=== PATIENT | female | born 1960 | race Caucasian/White ===

== ENCOUNTER → 2024-03-22 08:15 | Outpatient (REF) | payer OTHER, SELFPAY | LOC: HWRAD 08:15 | PROVIDERS: ATTENDING PHYSICIAN Specialist; FAMILY PHYSICIAN Family Medicine | DX: N20.0 Calculus of kidney (principal) | CPT/HCPCS: 76770 ==

== ENCOUNTER 2025-08-12 16:06 | Inpatient (IN) | payer OTHER, SELFPAY ==
[2025-08-12] VITALS (9 sets, daily range): BP systolic 104–158; BP diastolic 60–88
[2025-08-12 12:58] LABS: Urine Character Clear (Clear)
[2025-08-12 12:59] LABS: Hematocrit 36.5 % (37.0-47.0); Hemoglobin 12.7 g/dL (12.0-16.0); Mean Corp Hgb Conc. 34.8 g/dL (33.0-37.0); Mean Corpuscular Volume 90.3 fL (81.0-99.0); Nucleated Red Blood Cells % 0 %; Platelet Count 235 10^3/uL (130-400); Red Cell Dist. Width 11.9 % (11.5-14.5)
--- NOTE | 2025-08-12 12:59 | ED.GENMED ---
History of Present Illness
<KATHY Gibbs - Last Filed: 08/12/25 15:55>
General
Chief Complaint: Abdominal Pain
Source: patient
Exam Limitations: none
Time Seen by Provider: 08/12/25 12:15
Nursing documentation reviewed up to this point in time: agreed with
History of Present Illness
History of Present Illness:
Patient is a 65-year-old female presents with left-sided lower abdominal pain nausea vomiting and chills since last night. She does feel similar to diverticulitis in the past. She denies any actual fevers. She does have history of kidney stone
but reports this does not feel the same.
Past History
<KATHY Gibbs - Last Filed: 08/12/25 15:55>
Past History
ED Past Medical History: Hypothyroidism and Other (Migraines Diverticulitis Kidney stones); Negative Asthma, HTN, Hypercholesterolemia or NIDDM
ED Past Surgical History: None
Social History
Tobacco: Former smoker
Alcohol: None
Drug: None
Personal:
Living: with family
Employment: Employed
Family History
Family History: Other
Phy Exam
<KATHY Gibbs - Last Filed: 08/12/25 15:55>
General Physical Exam
General Presentation: no apparent distress
General age: appears stated age
General Skin: warm and dry
General Habitus: normal
General Mental: alert
General Hydration: appears well hydrated
Neurological Exam
Neurological Exam: alert and oriented x3
Musculoskeletal Exam
Musculoskeletal Exam: full ROM
Skin Exam
Skin Exam: normal color and warm/dry
Psychiatric Exam
Psychiatric Exam: normal mood/affect
Course
<KATHY Gibbs - Last Filed: 08/12/25 15:55>
Orders/Labs/Results
Orders:
Orders
08/12/25 12:44
Complete Blood Count/With Diff Urgent
Comprehensive Metabolic Panel Urgent
Lipase Urgent
Urinalysis Reflex To Culture Urgent
Date Specimen was Collected: 08/12/25
Time Specimen was Collected: 12:39
Urine Microscopic Reflex Cult Urgent
08/12/25 12:59
0.9% Sodium Chloride 1000 ml [Nss] 1,000 ml IV BOLUS
08/12/25 13:13
CT Abd/Pel (IV only)-DH only Urgent
Comment:
Reason For Exam: llq pain
08/12/25 15:50
Zosyn 3.375 grams IVPB NOW Piperacillin/Tazo 3.375 Gram [Zosyn] 3.375 gram in 50 ml IV NOW
Abnormal Lab Results
08/12/25
12:44
RBC 4.04 L 10^6/uL
(4.20-5.40)
Hct 36.5 L %
(37.0-47.0)
MCH 31.4 H pg
(27.0-31.0)
Absolute Monos (auto) 0.7 H 10^3/uL
(0.1-0.6)
Chloride 110 H mmol/L
(98-107)
Glucose 124 H mg/dl
(70-99)
Urine Albumin (Reflex) 1+ A
(Neg - Trace)
08/12/25 12:44
08/12/25 12:44
Vital Signs
Initial and Last Documented VS:
Initial Vital Signs
Temp Pulse Resp BP Pulse Ox
98.6 F 88 20 158/76 98
08/12/25 11:48 08/12/25 11:48 08/12/25 11:48 08/12/25 11:48 08/12/25 11:48
Last Documented Vital Signs
Temp Pulse Resp BP Pulse Ox
98.6 F 89 22 117/60 93
08/12/25 11:48 08/12/25 15:30 08/12/25 15:30 08/12/25 15:00 08/12/25 15:30
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
Furniture Mover Helper consulted with physician?: Yes
Name of Physician Consulted: Dr Hunter
<Flower Hunter, DO - Last Filed: 08/12/25 15:57>
Orders/Labs/Results
Orders:
Orders
08/12/25 12:44
Complete Blood Count/With Diff Urgent
Comprehensive Metabolic Panel Urgent
Lipase Urgent
Urinalysis Reflex To Culture Urgent
Date Specimen was Collected: 08/12/25
Time Specimen was Collected: 12:39
Urine Microscopic Reflex Cult Urgent
08/12/25 12:59
0.9% Sodium Chloride 1000 ml [Nss] 1,000 ml IV BOLUS
08/12/25 13:13
CT Abd/Pel (IV only)-DH only Urgent
Comment:
Reason For Exam: llq pain
08/12/25 15:50
Zosyn 3.375 grams IVPB NOW Piperacillin/Tazo 3.375 Gram [Zosyn] 3.375 gram in 50 ml IV NOW
Abnormal Lab Results
08/12/25
12:44
RBC 4.04 L 10^6/uL
(4.20-5.40)
Hct 36.5 L %
(37.0-47.0)
MCH 31.4 H pg
(27.0-31.0)
Absolute Monos (auto) 0.7 H 10^3/uL
(0.1-0.6)
Chloride 110 H mmol/L
(98-107)
Glucose 124 H mg/dl
(70-99)
Urine Albumin (Reflex) 1+ A
(Neg - Trace)
08/12/25 12:44
08/12/25 12:44
Vital Signs
Initial and Last Documented VS:
Initial Vital Signs
Temp Pulse Resp BP Pulse Ox
98.6 F 88 20 158/76 98
08/12/25 11:48 08/12/25 11:48 08/12/25 11:48 08/12/25 11:48 08/12/25 11:48
Last Documented Vital Signs
Temp Pulse Resp BP Pulse Ox
98.6 F 89 22 117/60 93
08/12/25 11:48 08/12/25 15:30 08/12/25 15:30 08/12/25 15:00 08/12/25 15:30
<KATHY Gibbs - Last Filed: 08/12/25 15:55>
MDM/Problems Addressed
Differential Diagnosis Includes:
Not limited to viral syndrome, gastroenteritis, colitis, diverticulitis, cholecystectomy
MDM/Problems Addressed:
Patient is a 65-year-old female presented with nausea and vomiting chills left-sided abdominal pain consistent with her previous diverticulitis. CAT scan does show diverticulitis in the sigmoid colon there is adjacent inflammation cannot rule out
developing abscess. Patient is afebrile with a normal white count case reviewed ED physician will order IV antibiotics and admit for continued observation
<KATHY Gibbs - Last Filed: 08/12/25 15:55>
*Radiology
Radiology exam reviewed: radiology read reviewed
*Pulse Oximetry
SaO2: 95
Oxygen Mode of Delivery: Room air
Patient hypoxic: no
*Critical Care Note
Total Time (30-74mins, 75-104mins- exclusive of procedures): Not Applicable
ED Attending Note
<KATHY Gibbs - Last Filed: 08/12/25 15:55>
-
Portions of this chart may have been created with voice recognition software.� Occasional wrong word or��sound alike� substitutions may have occurred due to the inherent limitations of voice recognition software.
<Flower Hunter, DO - Last Filed: 08/12/25 15:57>
ED Attending Note
Patient seen and examined by attending physician: Yes
I performed the substantive portion of visit, reviewed & personally made and approve the management plan that is documented in note by myself or DAMIAN.: Yes
I performed a history and physical exam of patient and discussed management with resident, I reviewed resident's note and agree with documented findings and plan of care.: Yes
ED Attending Note:
65-year-old female with prior history of diverticulitis presenting for abdominal pain with nausea and vomiting. Patient notes symptoms started last evening. She notes history of diverticulitis in the past which was her concern. Pain is lower in
quality. Also notes history of kidney stones. Denies any known fever. Vital signs significant for mild hypertension which improved without intervention.
On exam patient resting comfortably, nontoxic with focal tenderness to left lower quadrant of the abdomen. Patient seen by nurse practitioner prior to my assessment with laboratory imaging. Labs relatively unremarkable, however CT is consistent
with acute diverticulitis with possible developing abscess. For this reason feel patient warrants admission for IV antibiotics and continued close monitoring.
Discharge Plan
Departure
Discharge Problem:
Sigmoid diverticulitis
Prescriptions:
No Action
levothyroxine [Synthroid] 100 MCG tablet
100 mcg PO SUMOTUWETHFR
escitalopram oxalate 20 MG tablet
20 mg PO DAILY
cholecalciferol (vitamin D3) 2,000 UNITS tablet
2,000 units PO DAILY
loratadine 10 MG tablet
10 mg PO DAILY
tramadol 50 MG tablet
50 mg PO Q8HPRN PRN (Reason: moderate pain)
levothyroxine 100 MCG tablet
150 mcg PO SA
bupropion HCl 150 MG tablet extended release 24 hr
150 mg PO DAILY
phenazopyridine 100 MG tablet
100 mg PO [id number]
Patient Comments:
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
acetaminophen 500 MG capsule
500 mg PO Q6HPRN PRN (Reason: pain) Qty: 60 0RF
cefdinir [Omnicef] 300 MG capsule
300 mg PO Q12H Qty: 6 0RF
Referrals:
Claude Stanford DO [Family Provider, Family Practice]
Interventions
Interventions:
*Risk Screen - Suicide Last Done: 08/12/25 11:48
*General Assessment Last Done: 08/12/25 12:39
*Neglect/Abuse Screening Last Done: 08/12/25 11:50
*ED- Fall Risk Assessment Last Done: 08/12/25 12:39
*ED COVID-19 Vaccine History Last Done: 08/12/25 12:39
*ED Influenza Vaccine History Last Done: 08/12/25 12:39
PZ-Ktkqzr-Hiwwkeojoc Assessment Last Done: 08/12/25 12:39
Discharge Date and Time
Print Language: [place]IZ[place]
[2025-08-12] MEDS: NSS 1000 IV ×2 (13:15→20:23)
[2025-08-12 13:18] LABS: Urine Squamous Cell 0-2 /LPF (Few); Urine Urothelial Cell 0-2 /LPF (FEW)
[2025-08-12 13:20] LABS: Urine Red Blood Cell 0-2 /HPF (0-2); Urine White Cell 0-2 /HPF (0-5)
[2025-08-12 13:27] LABS: ALT (SGPT) 24 U/L (0-35); AST (SGOT) 25 U/L (14-36); Albumin 4.1 g/dl (3.5-5.0); Alkaline Phosphatase 70 U/L (38-126); Blood Urea Nitrogen 13 mg/dl (7-17); Calcium 9.3 mg/dl (8.4-10.2); Carbon Dioxide 24 mmol/L (22-30); Chloride 110 mmol/L (98-107); Glucose 124 mg/dl (70-99); Lipase 85 U/L (23-300); Potassium 4.2 mmol/L (3.5-5.1); Sodium 140 mmol/L (135-145); Total Protein 6.8 g/dl (6.3-8.2); eGFR > 60.00
[2025-08-12] MEDS: ZOSYN 50 IV ×2 (15:57→20:23)
--- NOTE | 2025-08-12 16:01 | HPS.HSE ---
Family Physician
-
Family Physician: Claude Stanford
Chief Complaint
-
abdominal pain
History of Present Illness
65-year-old female past medical history of hypothyroidism, migraines, diverticulitis, kidney stones status post bilateral stent placement, complicated UTI, depression, presenting with left-sided lower abdominal pain, nausea and vomiting and chills
since last night. Feels similar to prior diverticulitis. No actual fever. Denies any urinary symptoms.
She had diverticulitis a few years ago treated medically with antibiotics.
She denies smoking or alcohol use.
Medical History
Past Medical History
Past Medical History: Reports Other ( hypothyroidism, migraines, diverticulitis, kidney stones status post bilateral stent placement, complicated UTI, depression)
Past Surgical History: Reports Other (bilateral ureteral stents )
Social History
Tobacco: Non-smoker
Alcohol: None
Drug: None
Family History
Family History: Not pertinent
Allergies / Home Medications
Allergies reflects when Allergies were last updated in [facility].
Home Medications with original date entered in [facility]
Allergy/Medication List:
Allergies
Allergy/AdvReac Type Severity Reaction Status Date / Time
No Known Allergies Allergy Verified 08/12/25 11:48
Home Medications
escitalopram oxalate 20 mg tablet 20 mg PO DAILY mental health 03/02/22
levothyroxine 100 mcg tablet (Synthroid) 100 mcg PO SUMOTUWETHFR Thyroid 03/02/22
cholecalciferol (vitamin D3) 50 mcg (2,000 unit) tablet 2,000 units PO DAILY Supplement 03/07/22
loratadine 10 mg tablet 10 mg PO DAILY Allergies 04/05/22
bupropion HCl 150 mg 24 hr tablet, extended release 150 mg PO DAILY mental health 04/12/22
levothyroxine 100 mcg tablet 150 mcg PO SA Thyroid 04/12/22
phenazopyridine 100 mg tablet 100 mg PO [id number] Urinary issue 04/12/22
tramadol 50 mg tablet 50 mg PO Q8HPRN PRN moderate pain 04/12/22
acetaminophen 500 mg capsule 500 mg PO Q6HPRN PRN pain #60 caps 04/15/22
cefdinir 300 mg capsule (Omnicef) 300 mg PO Q12H #6 caps 04/15/22
Review of Systems
-
History Source: Patient
A 12 point ROS was completed and negative except as noted: Yes
Constitutional: Reports No Symptoms
EENT: Reports No Symptoms
Respiratory: Reports No Symptoms
Cardiac: Reports No Symptoms
Abdomen/GI: Reports No Symptoms
: Reports No Symptoms
Musculoskeletal: Reports No Symptoms
Skin: Reports No Symptoms
Neurological: Reports No Symptoms
Endocrine: Reports No Symptoms
Hematologic/Lymphatic: Reports No Symptoms
Psych: Reports No Symptoms
Physical Exam
Vital Signs
Vital Signs
Temp Pulse Resp BP Pulse Ox
98.6 F 89 22 117/60 93
08/12/25 11:48 08/12/25 15:30 08/12/25 15:30 08/12/25 15:00 08/12/25 15:30
Physical Exam
General: Well Developed, Well Nourished and No Apparent Distress
HEENT: NormoCephalic, Moist mucous membranes and Atraumatic
Respiratory: Clear
Cardiac: S1/S2 and Regular Rhythm; No Murmur or Rub
GI: Soft, Non Distended, Normal Bowel Sounds and Tender (LLQ ); No Organomegaly
Rectal: Deferred by Provider
Musculoskeletal: No Clubbing, No Cyanosis and No Edema
Skin: No Rash
Neuro: Nonfocal/grossly intact
Laboratory Results
-
08/12/25 12:44
08/12/25 12:44
Laboratory Results
Total Bilirubin 0.7 mg/dl (0.2-1.3) 08/12/25 12:44
AST 25 U/L (14-36) 08/12/25 12:44
ALT 24 U/L (0-35) 08/12/25 12:44
Alkaline Phosphatase 70 U/L (38-126) 08/12/25 12:44
Lipase 85 U/L (23-300) 08/12/25 12:44
Data Reviewed
-
Lab Data: Labs Reviewed by me
Old Records: Reviewed
Impression/Plan
-
IMPRESSION:
PLAN:
# Acute diverticulitis
# History of prior diverticulitis few years ago
- CT abdomen pelvis shows sigmoid diverticulitis, inflammation, developing small abscess cannot be excluded
- N.p.o.
- IV fluids
- Zosyn
- Colorectal surgery consulted
Hypothyroidism
- Continue levothyroxine
History of migraine
History of kidney stones with prior bilateral stent placement
History of complicated UTI
Anxiety/depression
- Continue bupropion, Lexapro
DNR/DNI
DVT prophylaxis�heparin
N.p.o.
--- NOTE | 2025-08-12 18:11 | EDCM ---
CM reviewed chart and met with pt bedside in ED. Lives with her son in first floor apartment, [address].
Independent in ADLs, personal care and ambulation at baseline. No assistive devices.
Confirms prescription coverage.
No hx VN or SNF.
PCP: Claude Stanford
Pharmacy: [facility] [address] [facility]
Anticipate discharge home, CM will continue to follow for any discharge planning needs.
[2025-08-12] MEDS: TORADOL 15 MG IV (18:51)
[2025-08-12] MEDS: HEPARIN 5000 UNITS SC (20:22)
--- NOTE | 2025-08-12 22:53 | PTCARENOTE ---
20:00 pt rec'vd from ER aaox3,able to ambulate to bed, vs WNL. Pt denies pain at this time however expresses some left upper abd pain when voids. denies needing pian medication at this time IVF infusing as ordered, pt NPO.. oriented to unit
[2025-08-13] MEDS: ZOSYN 50 IV ×4 (04:44→21:07)
[2025-08-13] MEDS: DILAUDID 0.5 MG IV (05:36)
[2025-08-13] MEDS: SYNTHROID 100 MCG PO (05:36)
[2025-08-13 07:03] LABS: Hematocrit 34.9 % (37.0-47.0); Hemoglobin 11.7 g/dL (12.0-16.0); Mean Corp Hgb Conc. 33.5 g/dL (33.0-37.0); Mean Corpuscular Volume 90.6 fL (81.0-99.0); Nucleated Red Blood Cells % 0 %; Platelet Count 202 10^3/uL (130-400); Red Cell Dist. Width 11.9 % (11.5-14.5)
[2025-08-13 07:33] LABS: ALT (SGPT) 26 U/L (0-35); AST (SGOT) 36 U/L (14-36); Albumin 3.5 g/dl (3.5-5.0); Alkaline Phosphatase 86 U/L (38-126); Blood Urea Nitrogen 11 mg/dl (7-17); Calcium 8.8 mg/dl (8.4-10.2); Carbon Dioxide 24 mmol/L (22-30); Chloride 113 mmol/L (98-107); Estimated Creatinine Clearance 75 ml/min; Glucose 135 mg/dl (70-99); Potassium 4.0 mmol/L (3.5-5.1); Sodium 142 mmol/L (135-145); Total Protein 5.9 g/dl (6.3-8.2); eGFR > 60.00
[2025-08-13 08:13] VITALS: BP 119/65
[2025-08-13] MEDS: NSS 1000 IV ×2 (09:22→20:11)
[2025-08-13] MEDS: HEPARIN SC (09:53)
[2025-08-13 10:58] LABS: C-Reactive Protein 24.80 mg/L (0.0-10.00)
--- NOTE | 2025-08-13 12:36 | CON.CRS ---
Consultation
-
Date/Time Consultation Performed: 08/13/2025
Performing Provider: Sidney Gonzalez MD
Reason for Consultation: Diverticulitis
Medical History
-
History of Present Illness:
65-year-old female with PMH of hypothyroidism, depression, migraines, kidney stones s/p bilateral ureteral stents, recurrent UTI and recurrent diverticulitis who presents with worsening abdominal pain associated with N/V for 2 days. This is similar
to her prior episodes of diverticulitis. She has had about 3 or 4 episodes since 2006, so she estimates about 1 episode every 4 to 5 years. She has not required surgery or procedure for these episodes. She denies any fevers, chest pain or SOB.
She has been having diarrhea, but denies any hematochezia.In the ED, her WBC was 8.[address] scan was done showing sigmoid diverticulitis, unable to rule out a small abscess. Personally reviewed and interpreted and I do not appreciate an abscess.
Her last colonoscopy was 06/[address] Avery Askew, which showed an ascending TA, rectal HP, diverticulosis and was recommended to repeat in 5 years.
Past Medical History
Past Medical History: Other (As above)
Past Surgical History: Other (Bilateral ureteral stents)
Social History
Tobacco: Non-Smoker
Alcohol: None
Drug: None
Family History
Family History: Other (Denies family history of CRC)
Allergies / Home Medications
Allergy/AdvReac Type Severity Reaction Status Date / Time
No Known Allergies Allergy Verified 08/12/25 11:48
�Medication �Instructions �Recorded �Confirmed �Type
escitalopram oxalate 20 mg tablet 20 mg PO DAILY mental health 03/02/22 04/12/22 History
levothyroxine 100 mcg tablet 100 mcg PO SUMOTUWETHFR Thyroid 03/02/22 08/13/25 History
(Synthroid)
cholecalciferol (vitamin D3) 50 2,000 units PO DAILY Supplement 03/07/22 08/13/25 History
mcg (2,000 unit) tablet
loratadine 10 mg tablet 10 mg PO DAILY Allergies 04/05/22 08/13/25 History
bupropion HCl 150 mg 24 hr tablet, 150 mg PO DAILY mental health 04/12/22 04/12/22 History
extended release
levothyroxine 100 mcg tablet 150 mcg PO SA Thyroid 04/12/22 08/13/25 History
phenazopyridine 100 mg tablet 100 mg PO [id number] Urinary issue 04/12/22 04/12/22 History
tramadol 50 mg tablet 50 mg PO Q8HPRN PRN moderate pain 04/12/22 04/12/22 History
acetaminophen 500 mg capsule 500 mg PO Q6HPRN PRN pain #60 caps 04/15/22 Rx
cefdinir 300 mg capsule 300 mg PO Q12H Infection 08/13/25 History
Review of Systems
-
A 10 point review of systems was completed, and was negative except as per HPI.
Physical Exam
Vital Signs
Temp 98.2 F 08/13/25 08:13
Pulse 78 08/13/25 08:13
Resp Rate 18 08/13/25 08:13
Blood pressure 119/65 08/13/25 08:13
SaO2 93 08/13/25 08:13
08/12/25 08/13/25 08/14/25
06:59 06:59 06:59
Actual Weight 80.9 kg
Lab Results / Allergies
08/13/25 06:28
08/13/25 06:28
WBC 5.1 10^3/uL (4.8-10.8) 08/13/25 06:28
Hgb 11.7 g/dL (12.0-16.0) L 08/13/25 06:28
Hct 34.9 % (37.0-47.0) L 08/13/25 06:28
Plt Count 202 10^3/uL (130-400) 08/13/25 06:28
Abs Immat Gran (auto) 0.0 10^3/uL (0-0.05) 08/13/25 06:28
Neutrophils % 54.9 % (42.2-75.2) 08/13/25 06:28
Allergy/AdvReac Type Severity Reaction Status Date / Time
No Known Allergies Allergy Verified 08/12/25 11:48
Physical Exam
General: Well Developed, Well Nourished and No Apparent Distress
HEENT: Normocephalic and Atraumatic
Respiratory: Non Labored Respirations
Cardiac: S1/S2
GI: Soft, Non Distended and Tender (Mildly tender in the LLQ without rebound or guarding)
Skin: Warm and Dry
Neuro: AO x 3
Assessment / Plan
-
65-year-old female with PMH of hypothyroidism, depression, migraines, kidney stones s/p bilateral ureteral stents, recurrent UTI and recurrent diverticulitis (first episode 2006, repeat episode every 4 to 5 years) who presents with worsening
abdominal pain associated with N/V and diarrhea for 2 days, similar to prior episodes of diverticulitis. In the ED, her WBC was 8.[address] scan was done showing sigmoid diverticulitis, unable to rule out a small abscess (I do not appreciate an
abscess on my review). Her last colonoscopy was 06/[address] Monzon, which showed an ascending TA, rectal HP, diverticulosis and was recommended to repeat in 5 years.
AFVSS
WBC 5.1, CR 0.7, CRP 24.8
� Recurrent uncomplicated diverticulitis
�Reviewed treatment options including nonoperative measures versus surgery; surgery in the acute setting will more likely require a midline incision and ostomy; recommend nonoperative measures to hopefully prevent any acute surgery
� Advance to clears
� Pain control with Toradol, Tylenol and Dilaudid as needed
� Continue IV Zosyn
� Encourage IS/OOB
� Appreciate hospitalist; will need repeat colonoscopy as outpatient; patient indicated she would like this done by myself
--- NOTE | 2025-08-13 13:15 | CM ---
CM following re: discharge planning.
Reviewed pt's chart.
Per chart review, recommends nonoperative measures to hopefully prevent any acute surgery
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
D/C plan: home with anticipated no needs. Son to transport at discharge.
CM will follow with discharge plan updates as needed.
[2025-08-13] MEDS: TYLENOL 1000 MG PO ×3 (13:30→23:21)
--- NOTE | 2025-08-13 16:14 | W.PN.UPDATE ---
Update Note
Progress Note Update
Acute diverticulitis
Initiate clear liquid diet advance as tolerated
IV fluids
Zosyn
Follow-up colorectal surgery recommendations
Hypothyroidism
Continue levothyroxine
Anxiety depression
Continue bupropion Lexapro
DNR/DNI
Read, reviewed, and agree. See same day progress note for additional details. Time spent reviewing records in EMR, med rec, consults, notes, d/w consultants, nursing, family, and CM
[2025-08-13 16:40] VITALS: BP 115/70
[2025-08-13] MEDS: LOVENOX 40 MG SC (17:13)
--- NOTE | 2025-08-13 18:21 | W.PN.HOSP.TC ---
Today's Communication/Plan
-
Advanced her diet to clear liquid
continue IV fluids
continue Zosyn
Follow-up colorectal surgery recs
Assessment / Plan
Assessment / Plan
65-year-old female past medical history of hypothyroidism, migraines, diverticulitis, kidney stones status post bilateral stent placement, complicated UTI, depression, presenting with left-sided lower abdominal pain, nausea and vomiting and chills
since last night. Feels similar to prior diverticulitis. No actual fever. Denies any urinary symptoms.
She had diverticulitis a few years ago treated medically with antibiotics.
She denies smoking or alcohol use.
#Acute diverticulitis
Initiate clear liquid diet and advance as tolerated
continue IV fluids
continue Zosyn
Follow-up colorectal surgery recommendations
#Hypothyroidism
Continue levothyroxine
#Anxiety depression
Continue bupropion Lexapro
DNR/DNI
DVT prophylaxix --lovenox 40 mg QPM
Anticipated Discharge: > 48 hours
Subjective/Interval History
-
Date of Service: August 13, 2025
Patient vomited after she took her po meds this morning , has nausea. denied abd pain, shortness of breath or chest pain. denied blood in stool.
Objective Data
-
Labs:
Laboratory Results
08/13/25
06:28
WBC 5.1
Hgb 11.7 L
Hct 34.9 L
Plt Count 202
Sodium 142
Potassium 4.0
Chloride 113 H
Carbon Dioxide 24
BUN 11
Creatinine 0.7
Glucose 135 H
Calcium 8.8
Total Bilirubin 1.2
AST 36
ALT 26
Alkaline Phosphatase 86
Vital Signs:
Vital Signs
Temp Pulse Resp BP Pulse Ox
98 F 77 18 115/70 97
08/13/25 16:40 08/13/25 16:40 08/13/25 16:40 08/13/25 16:40 08/13/25 16:40
I&O
08/12/25 08/13/25 08/14/25
06:59 06:59 06:59
Intake Total 1250 / 1250
Balance 1250 / 1250
Review of Systems
-
History Source: Patient
Constitutional: Reports No Symptoms
Respiratory: Reports No Symptoms
Cardiac: Reports No Symptoms
Abdomen/GI: Reports No Symptoms
Genitourinary: Reports No Symptoms
Musculoskeletal: Reports No Symptoms
Skin: Reports No Symptoms
Neuro: Reports No Symptoms
Physical Exam
-
General: Well Developed, Well Nourished and No Apparent Distress
HEENT: Normocephalic and Atraumatic
Respiratory: Clear to Auscultation
Cardiac: Regular Rhythm and S1/S2
GI: Soft and Tender (left lower quadrant pain)
Genito-urinary: Clear Urine
Neuro: Awake, Alert and Oriented
[2025-08-13 23:03] VITALS: BP 109/58
[2025-08-14] MEDS: ZOSYN 50 IV ×2 (03:58→10:10)
[2025-08-14] MEDS: TYLENOL 1000 MG PO ×2 (05:46→13:15)
[2025-08-14] MEDS: SYNTHROID 100 MCG PO (05:46)
[2025-08-14] MEDS: NSS 1000 IV (05:46)
[2025-08-14 06:46] LABS: Hematocrit 33.7 % (37.0-47.0); Hemoglobin 11.0 g/dL (12.0-16.0); Mean Corp Hgb Conc. 32.6 g/dL (33.0-37.0); Mean Corpuscular Volume 93.4 fL (81.0-99.0); Platelet Count 213 10^3/uL (130-400); Red Cell Dist. Width 12.0 % (11.5-14.5)
[2025-08-14 06:55] LABS: ALT (SGPT) 23 U/L (0-35); AST (SGOT) 21 U/L (14-36); Albumin 3.2 g/dl (3.5-5.0); Alkaline Phosphatase 78 U/L (38-126); Blood Urea Nitrogen 6 mg/dl (7-17); Calcium 8.9 mg/dl (8.4-10.2); Carbon Dioxide 26 mmol/L (22-30); Chloride 115 mmol/L (98-107); Estimated Creatinine Clearance 75 ml/min; Glucose 93 mg/dl (70-99); Potassium 3.9 mmol/L (3.5-5.1); Sodium 144 mmol/L (135-145); Total Protein 5.5 g/dl (6.3-8.2); eGFR > 60.00
[2025-08-14 07:02] LABS: C-Reactive Protein 22.10 mg/L (0.0-10.00)
[2025-08-14 07:30] VITALS: BP 125/74
--- NOTE | 2025-08-14 09:20 | W.PN.CRS1 ---
Today's Communication / Plan
-
regular diet
exam improved
ok for d/c later today if tolerates a regular diet, f/u with Dr. Gonzalez
Assessment/Plan
-
65-year-old female with PMH of hypothyroidism, depression, migraines, kidney stones s/p bilateral ureteral stents, recurrent UTI and recurrent diverticulitis (first episode 2006, repeat episode every 4 to 5 years) who presents with worsening
abdominal pain associated with N/V and diarrhea for 2 days, similar to prior episodes of diverticulitis, found to have recurrent uncomplicated diverticulitis
AFVSS
WBC 4.6, CRP 22.1 (24)
�No plans for surgery at this time
� Advance to a regular diet
� Pain control with Toradol, Tylenol and Dilaudid as needed
� Continue IV Zosyn. Convert to po abx upon discharge and finish course.
� Encourage IS/OOB
� Appreciate hospitalist; will need repeat colonoscopy as outpatient; patient indicated she would like this done by Dr. Gonzalez
- If she tolerates a regular diet, okay for d/c later today from our perspective. Follow up with Dr. Gonzalez in a few weeks.
Subjective Data
Subjective Data
Date of Service: August 14, 2025
Patient states she feels better today. Her pain is better controllled. She has gas but no bowel movements yet. No nausea or vomiting.
Objective Data
-
Vital Signs
Temp Pulse Resp BP Pulse Ox
98.5 F 72 16 125/74 97
08/14/25 07:30 08/14/25 07:30 08/14/25 07:30 08/14/25 07:30 08/14/25 07:30
Intake & Output
08/13/25 08/14/25 08/15/25
06:59 06:59 06:59
Intake Total 1250 / 1250 1300 / 1300
Balance 1250 / 1250 1300 / 1300
Intake:
IV fluids (Total) 1150 / 1150 1200 / 1200
IV piggybacks 100 / 100 100 / 100
Other:
Number of approximated MODERATE 3
amounts of urine
Lab Results
08/14/25 05:27
08/14/25 05:27
Physical Exam
-
General: No Acute Distress and AOx3
Abdomen: Soft, Non Distended and Tender (mild LLQ - improved)
Skin: Warm and Dry
--- NOTE | 2025-08-14 11:50 | CM ---
CM following re: discharge planning.
Reviewed pt's chart.
Discharge order noted. Pt is aware, expressed her agreement and she stated she will drive home, her son is at work.
No after care VN needs identified.
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
D/C plan: home with no needs. Pt will drive home, her car is on the parking lot.
--- NOTE | 2025-08-14 13:06 | W.PN.UPDATE ---
Update Note
Progress Note Update
Acute diverticulitis
Improving
Toelrating diet
IV fluids - DC
Zosyn - gtranstion to augmentin
Follow-up colorectal surgery recommendations
C-scope in 6-8weeks
Hypothyroidism
Continue levothyroxine
Anxiety depression
Continue bupropion Lexapro
DNR/DNI
DC home
Read, reviewed, and agree. See same day progress note for additional details. Time spent reviewing records in EMR, med rec, consults, notes, d/w consultants, nursing, family, and CM
--- NOTE | 2025-08-14 14:48 | W.PN.HOSP.TC ---
Today's Communication/Plan
-
If she tolerating regular diet she can be discharged home today and to discontinue Zosyn and discharged on Augmentin for 5 days
Assessment / Plan
Assessment / Plan
65-year-old female past medical history of hypothyroidism, migraines, diverticulitis, kidney stones status post bilateral stent placement, complicated UTI, depression, presenting with left-sided lower abdominal pain, nausea and vomiting and chills
since last night. Feels similar to prior diverticulitis. No actual fever. Denies any urinary symptoms.
She had diverticulitis a few years ago treated medically with antibiotics.
She denies smoking or alcohol use.
#Acute diverticulitis
Initiate clear liquid diet and advance as tolerated
continue IV fluids
continue Zosyn
Follow-up colorectal surgery recommendations
#Hypothyroidism
Continue levothyroxine
#Anxiety depression
Continue bupropion Lexapro
DNR/DNI
DVT prophylaxix --lovenox 40 mg QPM
Anticipated Discharge: Today
Subjective/Interval History
-
Date of Service: August 14, 2025
Patient denies abd pain , shortness of breath, nausea , vomiting.
Objective Data
-
Labs:
Laboratory Results
08/14/25
05:27
WBC 4.6 L
Hgb 11.0 L
Hct 33.7 L
Plt Count 213
Sodium 144
Potassium 3.9
Chloride 115 H
Carbon Dioxide 26
BUN 6 L
Creatinine 0.7
Glucose 93
Calcium 8.9
Total Bilirubin 0.7
AST 21
ALT 23
Alkaline Phosphatase 78
Vital Signs:
Vital Signs
Temp Pulse Resp BP Pulse Ox
98.5 F 72 16 125/74 97
08/14/25 07:30 08/14/25 07:30 08/14/25 07:30 08/14/25 07:30 08/14/25 07:30
I&O
08/13/25 08/14/25 08/15/25
06:59 06:59 06:59
Intake Total 1250 / 1250 1300 / 1300
Balance 1250 / 1250 1300 / 1300
Review of Systems
-
History Source: Patient
Constitutional: Reports No Symptoms
Respiratory: Reports No Symptoms
Cardiac: Reports No Symptoms
Abdomen/GI: Reports No Symptoms
Genitourinary: Reports No Symptoms
Physical Exam
-
General: Well Developed and No Apparent Distress
HEENT: Normocephalic and Atraumatic
Respiratory: Clear to Auscultation
Cardiac: Regular Rhythm and S1/S2
GI: Soft and Nontender
Genito-urinary: Clear Urine
Skin: Warm and Dry
Psych: Calm and Confused
--- NOTE | 2025-08-16 08:21 | W.DCSUMMARY ---
Discharge Summary
Discharge Data
Date of Admission: 08/12/25
Date of Discharge: 08/14/25
-
Pending Results: No
Additional Pending Results:
Discharging Physician:
Adan Carbajal
Disposition:
Home
Primary Care Physician:
Claude Stanford
Principal Discharge Diagnosis:
Sigmoid Diverticulitis
Bilateral renal cysts
Left adrenal gland mass, likely an adenoma
Chronic Discharge Diagnosis:
Hypothyroidism
Migraines
Diverticulitis
Kidney stones status post bilateral stent placement, complicated UTI
Depression
Hospital Course
65-year-old female presenting to the ER with left-sided lower abdominal pain, nausea and vomiting and chills since last night. Feels similar to prior diverticulitis. No actual fever. Denies any urinary symptoms. She had diverticulitis a few
years ago treated medically with antibiotics. Her WBC wnl, CRP 24.8 and Urinalysis negative for infection and vital signs stable. CT Abd/Pel (IV only)- only showed sigmoid diverticulitis with inflammation in this region and a developing small
abscess cannot be excluded. She started on IV Zosyn with fluids. Colorectal surgeon consulted, she was NPO and he diet advanced from clear to residue to regular diet ands was able to tolerate. her WBC remained wnl, CRP 22 (24.8) and her vital signs
remained stable. Her symptoms improved and was discharged in stable condition on Augmentin PO for 5 days course. She was advised to follow up with GI for outpatient colonoscopy and she indicated to f/u with Dr. Gonzalez and to be done by him.
Important Radiological Findings:
CT Abd/Pel (IV only)- only 08/12/2025
IMPRESSION:
1. There is sigmoid diverticulitis. There is inflammation in this region and a developing small abscess cannot be excluded.
2. There is a mass in the left adrenal gland, unchanged and likely an adenoma.
3. There are bilateral renal cysts
Discharge Plan
-
Patient Disposition: Home (Routine Discharge)
Discharge Diagnosis/Procedures: Sigmoid diverticulitis
Condition: Good
Diet: Regular
Activity: As tolerated
Driving Restrictions: As prior to admission
Bathing Restrictions: OK to Shower
Instructions: Colonoscopy, Diverticulitis (DC)
Referrals:
Claude Stanford DO [Family Provider, Family Practice] - in less than 1 week
Sidney Gonzalez MD [Active, ColoRectal] - in two to four weeks
Additional Discharge Medication Instructions: Will need eventual colonoscopy. To be discussed with Dr. Gonzalez at the outpatient office visit.
Prescriptions:
New
amoxicillin-pot clavulanate 875-125 mg tablet
1 tab PO TID 5 Days Qty: 16 0RF
Continued
levothyroxine [Synthroid] 100 MCG tablet
100 mcg PO SUMOTUWETHFR
escitalopram oxalate 20 MG tablet
20 mg PO DAILY
cholecalciferol (vitamin D3) 2,000 UNITS tablet
2,000 units PO DAILY
loratadine 10 MG tablet
10 mg PO DAILY
tramadol 50 MG tablet
50 mg PO Q8HPRN PRN (Reason: moderate pain)
levothyroxine 100 MCG tablet
150 mcg PO SA
bupropion HCl 150 MG tablet extended release 24 hr
150 mg PO DAILY
phenazopyridine 100 MG tablet
100 mg PO [id number]
Patient Comments:
patient pick up man on 04/05/22 #30
acetaminophen 500 MG capsule
500 mg PO Q6HPRN PRN (Reason: pain) Qty: 60 0RF
Discontinued
cefdinir [Omnicef] 300 MG capsule
300 mg PO Q12H
Discharge Orders:
Discharge Patient (As Directed); Ordered 08/14/25
Ordered By: Adan Choudhary
Discharge Date and Time
Discharge Date/Time: 08/14/25 14:52
Print Language: CZECH
== END 2025-08-14 14:52 | disposition home or self-care (01) | DRG 392 ==
LOC: 2 SOUTH 16:06
PROVIDERS: Nurse Practitioner; Specialist Research Data Abstracter/Coder; ADMITTING PHYSICIAN Hospitalist; ATTENDING PHYSICIAN Hospitalist; EMERGENCY PHYSICIAN Student in an Organized Health Care Education/Training Program; FAMILY PHYSICIAN Family Medicine; OTHER PHYSICIAN Surgery
DX: K57.32 Diverticulitis of large intestine without perforation or abscess without bleeding (principal); Z87.891 Personal history of nicotine dependence; E03.9 Hypothyroidism, unspecified; F32.A Depression, unspecified; F41.9 Anxiety disorder, unspecified; Z66 Do not resuscitate; Z87.440 Personal history of urinary (tract) infections; Z87.442 Personal history of urinary calculi
CPT/HCPCS: 74177; 80053; 81003; 81015; 83690; 85025; 85027; 86140; 96365; 96375; 99285; Q9967